=== PATIENT | male | born 2000 | race Caucasian/White ===

== ENCOUNTER 2021-02-23 18:12 | Emergency (ER) | payer OTHER ==
[2021-02-23] MEDS ORDERED: CYCLOBENZAPRINE5 MG PO (21:09)
[2021-02-23] MEDS ORDERED: NAPROSYN500 MG PO (21:09)
== END 2021-02-23 21:20 | disposition home or self-care (01) ==
LOC: ER1 18:12
DX: S16.1XXA Strain of muscle, fascia and tendon at neck level, initial encounter (principal); S46.912A Strain of unspecified muscle, fascia and tendon at shoulder and upper arm level, left arm, initial encounter; S46.911A Strain of unspecified muscle, fascia and tendon at shoulder and upper arm level, right arm, initial encounter; S80.02XA Contusion of left knee, initial encounter; S80.01XA Contusion of right knee, initial encounter; S20.213A Contusion of bilateral front wall of thorax, initial encounter; Z79.899 Other long term (current) drug therapy; V49.40XA Driver injured in collision with unspecified motor vehicles in traffic accident, initial encounter; Y92.410 Unspecified street and highway as the place of occurrence of the external cause
CPT/HCPCS: 71046; 72125; 73030; 73562; 99284